=== PATIENT | female | born 1955 | race American Indian/Alaskan Native ===

== ENCOUNTER 2017-06-11 07:52 | Inpatient (IN) | payer MEDICARE ==
--- NOTE | 2017-06-11 08:40 | XRay Report ---
ROUTINE CHEST, TWO VIEWS: HISTORY: chest pain. The trachea, heart, mediastinal contour, lung walker and bony thorax are unremarkable. IMPRESSION: Unremarkable chest x-ray. No acute change since 12/29/14.
[2017-06-11] MEDS ORDERED: MORPHINE IV ONE (08:54)
--- NOTE | 2017-06-11 08:54 | Emergency Department Report ---
ED General Adult HPI - General Chief complaint: Chest Pain Stated complaint: CHEST PAIN Time Seen by Provider: 06/11/17 08:28 Source: patient, EMS Mode of arrival: Stretcher Limitations: No Limitations - History of Present Illness Initial comments: Patient is a 62-year-old female past medical history of HIV and every day smoker who presents with left-sided chest pain. Patient states the low side chest pain was severe. It was a 10 out of 10. Patient states that the chest pain improved with nitroglycerin nothing makes it worse. She denies having any radiation with this pain and she denies having any shortness of breath or chest pain. Patient states that she hasn't had chest pain like this before and states that she is compliant with all her medication. - Related Data Home Medications Medication Instructions Recorded Confirmed Last Taken Atazanavir [Reyataz] 300 mg PO DAILY 11/01/15 11/01/15 10/02/15 Citalopram [celeXA] 20 mg PO QDAY 11/01/15 11/01/15 10/02/15 Emtricitabin/Tenofovir [TRUVADA 1 tab PO QDAY 11/01/15 11/01/15 10/02/15 200-300 mg] Ferrous Sulfate [Feosol] 325 mg PO TID 11/01/15 11/01/15 10/02/15 Ranitidine HCl [Zantac 150 MG TAB] 150 mg PO QDAY 11/01/15 11/01/15 10/02/15 Ritonavir [Norvir] 100 mg PO QDAY 11/01/15 11/01/15 10/02/15 Tamsulosin [Flomax] 0.4 mg PO QDAY 11/01/15 11/01/15 10/02/15 Trazodone HCl [traZODone] 300 mg PO QHS 11/01/15 11/01/15 10/02/15 Allergies Allergy/AdvReac Type Severity Reaction Status Date / Time steroids AdvReac "makes me Uncoded 12/13/14 07:13 flip out" ED Review of Systems ROS: Stated complaint: CHEST PAIN Other details as noted in HPI Constitutional: denies: chills, fever Eyes: denies: eye pain, eye discharge, vision change ENT: denies: ear pain, throat pain Respiratory: denies: cough, shortness of breath, wheezing Cardiovascular: chest pain. denies: palpitations Endocrine: no symptoms reported Gastrointestinal: denies: abdominal pain, nausea, diarrhea Genitourinary: denies: urgency, dysuria, discharge Musculoskeletal: denies: back pain, joint swelling, arthralgia Skin: denies: rash, lesions Neurological: denies: headache, weakness, paresthesias Psychiatric: denies: anxiety, depression Hematological/Lymphatic: denies: easy bleeding, easy bruising ED Past Medical Hx - Past Medical History Hx Psychiatric Treatment: Yes (bipolar) Hx HIV: Yes Additional medical history: pneumonia x 2. emphysema - Surgical History Additional Surgical History: ectopic - Social History Smoking Status: Current Every Day Smoker Substance Use Type: None - Medications Home Medications: Home Medications Medication Instructions Recorded Confirmed Last Taken Type Atazanavir [Reyataz] 300 mg PO DAILY 11/01/15 11/01/15 10/02/15 History Citalopram [celeXA] 20 mg PO QDAY 11/01/15 11/01/15 10/02/15 History Emtricitabin/Tenofovir [TRUVADA 1 tab PO QDAY 11/01/15 11/01/15 10/02/15 History 200-300 mg] Ferrous Sulfate [Feosol] 325 mg PO TID 11/01/15 11/01/15 10/02/15 History Ranitidine HCl [Zantac 150 MG TAB] 150 mg PO QDAY 11/01/15 11/01/15 10/02/15 History Ritonavir [Norvir] 100 mg PO QDAY 11/01/15 11/01/15 10/02/15 History Tamsulosin [Flomax] 0.4 mg PO QDAY 11/01/15 11/01/15 10/02/15 History Trazodone HCl [traZODone] 300 mg PO QHS 11/01/15 11/01/15 10/02/15 History ED Physical Exam - General Limitations: No Limitations General appearance: alert, in no apparent distress - Head Head exam: Present: atraumatic, normocephalic - Eye Eye exam: Present: normal appearance - ENT ENT exam: Present: mucous membranes moist - Neck Neck exam: Present: normal inspection - Respiratory Respiratory exam: Present: normal lung sounds bilaterally. Absent: respiratory distress - Cardiovascular Cardiovascular Exam: Present: regular rate, normal rhythm. Absent: systolic murmur, diastolic murmur, rubs, gallop - GI/Abdominal GI/Abdominal exam: Present: soft, normal bowel sounds - Extremities Exam Extremities exam: Present: normal inspection - Back Exam Back exam: Present: normal inspection - Neurological Exam Neurological exam: Present: alert, oriented X3 - Psychiatric Psychiatric exam: Present: normal affect, normal mood - Skin Skin exam: Present: warm, dry, intact, normal color. Absent: rash ED Course Vital Signs 06/11/17 06/11/17 06/11/17 08:09 08:24 08:26 Temperature 97.7 F Pulse Rate 78 76 77 Respiratory 16 17 Rate Blood Pressure 150/94 O2 Sat by Pulse 96 Oximetry ED Medical Decision Making - Lab Data Result diagrams: 06/11/17 09:02 06/11/17 09:02 Lab Results 06/11/17 06/11/17 Range/Units 09:02 09:02 WBC 4.5 (4.5-11.0) K/mm3 RBC 5.05 H (3.65-5.03) M/mm3 Hgb 15.2 H (10.1-14.3) gm/dl Hct 45.7 H (30.3-42.9) % MCV 90 (79-97) fl MCH 30 (28-32) pg MCHC 33 (30-34) % RDW 15.5 H (13.2-15.2) % Plt Count 115 L (140-440) K/mm3 Lymph % (Auto) 30.1 (13.4-35.0) % Esmeralda % (Auto) 6.9 (0.0-7.3) % Eos % (Auto) 1.3 (0.0-4.3) % Baso % (Auto) 0.7 (0.0-1.8) % Lymph # 1.4 (1.2-5.4) K/mm3 Esmeralda # 0.3 (0.0-0.8) K/mm3 Eos # 0.1 (0.0-0.4) K/mm3 Baso # 0.0 (0.0-0.1) K/mm3 Seg Neutrophils % 61.0 (40.0-70.0) % Seg Neutrophils # 2.8 (1.8-7.7) K/mm3 Sodium 141 (137-145) mmol/L Potassium 4.3 (3.6-5.0) mmol/L Chloride 103.1 (98-107) mmol/L Carbon Dioxide 22 (22-30) mmol/L Anion Gap 20 mmol/L BUN 8 (7-17) mg/dL Creatinine 0.8 (0.7-1.2) mg/dL Estimated GFR > 60 ml/min BUN/Creatinine Ratio 10 % Glucose 96 (65-100) mg/dL Calcium 9.4 (8.4-10.2) mg/dL Troponin T < 0.010 (0.00-0.029) ng/mL - EKG Data -: EKG Interpreted by Ky - EKG Data 06/11/17 10:14 EKG shows sinus rhythm prolonged AK interval T-wave abnormality and T-wave flattening no ST segment elevation - Radiology Data Radiology results: report reviewed, image reviewed Chest x-ray: Shows no acute cardiopulmonary disease - Medical Decision Making Chief medical diagnosis: Non-STEMI Differential medical diagnosis: Pneumothorax, arrhythmia, GERD I will give the patient IV pain medication, CBC, CMP, troponin, EKG, chest x-ray The patient having HIV and a daily smoker she is at risk for acute coronary syndrome. I will admit patient to the hospitalist service for a stress test and echo. Discussed plan with patient and she agrees with plan. Critical care attestation.: If time is entered above; I have spent that time in minutes in the direct care of this critically ill patient, excluding procedure time. ED Disposition Clinical Impression: Tobacco abuse, Acute coronary syndrome Chest pain Qualifiers: Chest pain type: unspecified Qualified Code(s): R07.9 - Chest pain, unspecified Disposition: OP ADMIT IP TO THIS HOSP Is pt being admited?: Yes Does the pt Need Aspirin: No Condition: Stable Instructions: Chest Pain (ED) Referrals: PRIMARY CARE, [Primary Care Provider] - 3-5 Days
[2017-06-11 09:45] LABS: Basophils % (Auto) 0.7 % (0.0-1.8); Eosinophils % (Auto) 1.3 % (0.0-4.3); Hematocrit 45.7 % (30.3-42.9); Hemoglobin 15.2 gm/dl (10.1-14.3); Mean Corpuscular HGB Conc 33 % (30-34); Mean Corpuscular Hemoglobin 30 pg (28-32); Mean Corpuscular Volume 90 fl (79-97); Platelet Count 115 K/mm3 (140-440); Red Blood Count 5.05 M/mm3 (3.65-5.03); Red Cell Distribution Width 15.5 % (13.2-15.2); White Blood Count 4.5 K/mm3 (4.5-11.0)
[2017-06-11 09:47] LABS: Anion Gap 20 mmol/L; BUN/Creatinine Ratio 10; Blood Urea Nitrogen 8 mg/dL (7-17); Calcium 9.4 mg/dL (8.4-10.2); Carbon Dioxide 22 mmol/L (22-30); Chloride 103.1 mmol/L (98-107); Glucose 96 mg/dL (65-100); Potassium 4.3 mmol/L (3.6-5.0); Sodium 141 mmol/L (137-145)
[2017-06-11] MEDS ORDERED: MORPHINE IV PRN (11:06)
[2017-06-11] MEDS ORDERED: DULCOLAX PR PRN (11:06)
[2017-06-11] MEDS ORDERED: TYLENOL PO PRN (11:06)
--- NOTE | 2017-06-11 11:10 | History and Physical Report ---
<TOÑO AGUILAR - Last Filed: 06/11/17 11:54> History of Present Illness Date of examination: 06/11/17 Date of admission: 06/11/2017 Chief complaint: Chest Pain History of present illness: Patient is a 62 years old black with past medical history of HIV and Bipolar who presents to emergency department with chief complaint of chest pain. She states that the pain began this morning constant left side chest pain. The pain was located over to substerna area .Patient described the pain as, something pushing on her chest; non-radiating.There is no aggravating; was relieved when she was given NTG by EMS. The painful episodes did not increase in intensity or severity during this time. Patient rated her pain level 7/10 at present time. She denies nausea, vomiting during these episodes of pain. Patient reported diaphoresis including feeling lightheadedness and dizziness. She continued to have several episodes of the pain throughout the morning and got worried so she called 911 and they brought her to the Emergency Department. The patient states she never had a stress test or cardiac catheterization before or she hasn't had chest pain like this before. Her primary care provider [facility]; her provider is Dr. Mosquera; she does not know her last name. Past History Past Medical History: HIV/AIDS, other (Bipolar) Past Surgical History: No surgical history Social history: Lives alone, smoking. denies: alcohol abuse Family history: CAD, hypertension Medications and Allergies Allergies Allergy/AdvReac Type Severity Reaction Status Date / Time steroids AdvReac "makes me Uncoded 12/13/14 07:13 flip out" Home Medications Medication Instructions Recorded Confirmed Last Taken Type Atazanavir [Reyataz] 300 mg PO DAILY 11/01/15 11/01/15 10/02/15 History Citalopram [celeXA] 20 mg PO QDAY 11/01/15 11/01/15 10/02/15 History Emtricitabin/Tenofovir [TRUVADA 1 tab PO QDAY 11/01/15 11/01/15 10/02/15 History 200-300 mg] Ferrous Sulfate [Feosol] 325 mg PO TID 11/01/15 11/01/15 10/02/15 History Ranitidine HCl [Zantac 150 MG TAB] 150 mg PO QDAY 11/01/15 11/01/15 10/02/15 History Ritonavir [Norvir] 100 mg PO QDAY 11/01/15 11/01/15 10/02/15 History Tamsulosin [Flomax] 0.4 mg PO QDAY 11/01/15 11/01/15 10/02/15 History Trazodone HCl [traZODone] 300 mg PO QHS 11/01/15 11/01/15 10/02/15 History Active Meds: Active Medications Acetaminophen (Tylenol) 650 mg PO Q4H PRN PRN Reason: Pain MILD(1-3)/Fever >100.5/LEE Atazanavir (Reyataz) 300 mg PO DAILY [facility] Bisacodyl (Dulcolax) 10 mg SD QDAY PRN PRN Reason: Constipation unrelieved by MOM Enoxaparin Sodium (Lovenox) 40 mg SUB-Q QDAY [facility] Morphine Sulfate (Morphine) 2 mg IV Q4H PRN PRN Reason: Pain, Moderate (4-6) Review of Systems Constitutional: no weight gain, no fever, no chills, no sweats Ears, nose, mouth and throat: no decreased hearing, no nose pain, no nasal congestion, no nasal discharge Cardiovascular: chest pain, lightheadedness, no orthopnea, no palpitations, no rapid/irregular heart beat, no edema, no syncope, no shortness of breath, no dyspnea on exertion Respiratory: no cough with sputum, no excessive sputum, no hemoptysis, no shortness of breath Gastrointestinal: no vomiting, no diarrhea, no constipation, no change in bowel habits Genitourinary Female: no dysmenorrhea, no pelvic pain, no flank pain, no menorrhagia, no dysuria Rectal: no incontinence, no bleeding Musculoskeletal: no neck pain, no shooting arm pain, no arm numbness/tingling, no low back pain Integumentary: no pruritis, no redness, no sores, no wounds Neurological: no weakness, no parathesias, no numbness, no tingling Psychiatric: no change in sleep habits, no sleep disturbances, no insomnia, no hypersomnia Endocrine: no cold intolerance, no heat intolerance, no polyphagia, no excessive thirst Hematologic/Lymphatic: no easy bruising, no easy bleeding Allergic/Immunologic: no urticaria, no allergic rhinitis Exam - Constitutional Vitals: Temp Pulse Resp BP Pulse Ox 97.7 F 77 17 150/94 96 06/11/17 08:09 06/11/17 08:26 06/11/17 08:24 06/11/17 08:09 06/11/17 08:09 General appearance: Present: no acute distress - EENT Eyes: Present: PERRL ENT: hearing intact - Neck Neck: Present: supple - Respiratory Respiratory: bilateral: CTA - Cardiovascular Rhythm: regular Heart Sounds: Present: S1 & S2 - Extremities Extremities: no ischemia - Abdominal General gastrointestinal: Present: soft, non-tender Female genitourinary: Present: deferred - Rectal Rectal Exam: deferred - Integumentary Integumentary: Present: clear, warm, dry - Musculoskeletal Musculoskeletal: strength equal bilaterally - Psychiatric Psychiatric: appropriate mood/affect - Neurologic Neurologic: CNII-XII intact - Allied Health Allied health notes reviewed: nursing Results - Labs CBC & Chem 7: 06/11/17 09:02 06/11/17 09:02 Labs: Laboratory Last Values WBC 4.5 K/mm3 (4.5-11.0) 06/11/17 09:02 RBC 5.05 M/mm3 (3.65-5.03) H 06/11/17 09:02 Hgb 15.2 gm/dl (10.1-14.3) H 06/11/17 09:02 Hct 45.7 % (30.3-42.9) H 06/11/17 09:02 MCV 90 fl (79-97) 06/11/17 09:02 MCH 30 pg (28-32) 06/11/17 09:02 MCHC 33 % (30-34) 06/11/17 09:02 RDW 15.5 % (13.2-15.2) H 06/11/17 09:02 Plt Count 115 K/mm3 (140-440) L 06/11/17 09:02 Lymph % (Auto) 30.1 % (13.4-35.0) 06/11/17 09:02 Swisher % (Auto) 6.9 % (0.0-7.3) 06/11/17 09:02 Eos % (Auto) 1.3 % (0.0-4.3) 06/11/17 09:02 Baso % (Auto) 0.7 % (0.0-1.8) 06/11/17 09:02 Lymph # 1.4 K/mm3 (1.2-5.4) 06/11/17 09:02 Swisher # 0.3 K/mm3 (0.0-0.8) 06/11/17 09:02 Eos # 0.1 K/mm3 (0.0-0.4) 06/11/17 09:02 Baso # 0.0 K/mm3 (0.0-0.1) 06/11/17 09:02 Seg Neutrophils % 61.0 % (40.0-70.0) 06/11/17 09:02 Seg Neutrophils # 2.8 K/mm3 (1.8-7.7) 06/11/17 09:02 Sodium 141 mmol/L (137-145) 06/11/17 09:02 Potassium 4.3 mmol/L (3.6-5.0) 06/11/17 09:02 Chloride 103.1 mmol/L (98-107) 06/11/17 09:02 Carbon Dioxide 22 mmol/L (22-30) 06/11/17 09:02 Anion Gap 20 mmol/L 06/11/17 09:02 BUN 8 mg/dL (7-17) 06/11/17 09:02 Creatinine 0.8 mg/dL (0.7-1.2) 06/11/17 09:02 Estimated GFR > 60 ml/min 06/11/17 09:02 BUN/Creatinine Ratio 10 % 06/11/17 09:02 Glucose 96 mg/dL (65-100) 06/11/17 09:02 Calcium 9.4 mg/dL (8.4-10.2) 06/11/17 09:02 Troponin T < 0.010 ng/mL (0.00-0.029) 06/11/17 09:02 - Imaging and Cardiology Chest x-ray: image reviewed (Unremarkable ) Assessment and Plan Assessment and plan: Patient is a 62 years old black with past medical history of HIV and Bipolar who presents to emergency department with chief complaint of chest pain. She states that the pain began this morning constant left side chest pain. The pain was located over to substerna area .Patient described the pain as, something pushing on her chest; non-radiating. chest x-ray-no focal infiltrates, no pneumothorax. Cardiac enzyme negative 3. EKG Normal Sinus rhythm no ST elevation or T-wave inversion. ASSESSMENT/PLAN Chest Pain We will admit to telemetry floor. EKG normal sinus rate [address] elevation or T-wave inversion. Negative cardiac enzyme X1 Start on aspirin Nitroglycerin when necessary Morphine ordered for pain Stress test ordered. Dehydration Started on IV fluid hydration HIV CD4 count of 351 with undetectable viral load Follow up with her ID physician Closing monitor Bipolar disorder Patient stable at this time Continue home meds Elevated blood pressure without diagnosis Most likely due to stress, pain or other factors Low-salt diet Lifestyle modification Follow-up with primary provider Tobacco abuse Smoking cessation counseling done. Patient was strongly advised to quit. DVT prophylaxis Lovenox Advance Directives: Yes VTE prophylaxis?: Chemical Contraindication Mechanical VTE Prophylaxis: Treatment Not Indicated Plan of care discussed with patient/family: Yes <AYDE CORCORAN R - Last Filed: 06/11/17 12:13> Medications and Allergies Active Meds: Active Medications Acetaminophen (Tylenol) 650 mg PO Q4H PRN PRN Reason: Pain MILD(1-3)/Fever >100.5/LEE Atazanavir (Reyataz) 300 mg PO DAILY [facility] Bisacodyl (Dulcolax) 10 mg SD QDAY PRN PRN Reason: Constipation unrelieved by MOM Citalopram Hydrobromide (Celexa) 20 mg PO QDAY [facility] Emtricitabine (Emtriva) 200 mg PO QDAY [facility] Enoxaparin Sodium (Lovenox) 40 mg SUB-Q QDAY [facility] Famotidine (Pepcid) 20 mg PO QDAY [facility] Ferrous Sulfate (Feosol) 325 mg PO TID [facility] Sodium Chloride (Nacl 0.9% 1000 Ml) 1,000 mls @ 75 mls/hr IV DIRECT SANTO Morphine Sulfate (Morphine) 2 mg IV Q4H PRN PRN Reason: Pain, Moderate (4-6) Nitroglycerin (Nitrostat) 0.4 mg SL .Q5MIN PRN PRN Reason: Chest Pain Ritonavir (Norvir) 100 mg PO QDAY [facility] Tamsulosin HCl (Flomax) 0.4 mg PO QDAY [facility] Tenofovir Disoproxil Fumarate (Viread) 300 mg PO QDAY [facility] Trazodone HCl (Desyrel) 300 mg PO QHS [facility] Exam - Constitutional Vitals: Temp Pulse Resp BP Pulse Ox 97.7 F 77 17 150/94 96 06/11/17 08:09 06/11/17 08:26 06/11/17 08:24 06/11/17 08:09 06/11/17 08:09 Results - Labs CBC & Chem 7: 06/11/17 09:02 06/11/17 09:02 Labs: Laboratory Last Values WBC 4.5 K/mm3 (4.5-11.0) 06/11/17 09:02 RBC 5.05 M/mm3 (3.65-5.03) H 06/11/17 09:02 Hgb 15.2 gm/dl (10.1-14.3) H 06/11/17 09:02 Hct 45.7 % (30.3-42.9) H 06/11/17 09:02 MCV 90 fl (79-97) 06/11/17 09:02 MCH 30 pg (28-32) 06/11/17 09:02 MCHC 33 % (30-34) 06/11/17 09:02 RDW 15.5 % (13.2-15.2) H 06/11/17 09:02 Plt Count 115 K/mm3 (140-440) L 06/11/17 09:02 Lymph % (Auto) 30.1 % (13.4-35.0) 06/11/17 09:02 Swisher % (Auto) 6.9 % (0.0-7.3) 06/11/17 09:02 Eos % (Auto) 1.3 % (0.0-4.3) 06/11/17 09:02 Baso % (Auto) 0.7 % (0.0-1.8) 06/11/17 09:02 Lymph # 1.4 K/mm3 (1.2-5.4) 06/11/17 09:02 Swisher # 0.3 K/mm3 (0.0-0.8) 06/11/17 09:02 Eos # 0.1 K/mm3 (0.0-0.4) 06/11/17 09:02 Baso # 0.0 K/mm3 (0.0-0.1) 06/11/17 09:02 Seg Neutrophils % 61.0 % (40.0-70.0) 06/11/17 09:02 Seg Neutrophils # 2.8 K/mm3 (1.8-7.7) 06/11/17 09:02 Sodium 141 mmol/L (137-145) 06/11/17 09:02 Potassium 4.3 mmol/L (3.6-5.0) 06/11/17 09:02 Chloride 103.1 mmol/L (98-107) 06/11/17 09:02 Carbon Dioxide 22 mmol/L (22-30) 06/11/17 09:02 Anion Gap 20 mmol/L 06/11/17 09:02 BUN 8 mg/dL (7-17) 06/11/17 09:02 Creatinine 0.8 mg/dL (0.7-1.2) 06/11/17 09:02 Estimated GFR > 60 ml/min 06/11/17 09:02 BUN/Creatinine Ratio 10 % 06/11/17 09:02 Glucose 96 mg/dL (65-100) 06/11/17 09:02 Calcium 9.4 mg/dL (8.4-10.2) 06/11/17 09:02 Troponin T < 0.010 ng/mL (0.00-0.029) 06/11/17 09:02 Assessment and Plan Assessment and plan: I saw and evaluated the patient. I agree with the findings and the plan of care as documented in the Nurse Practitioner's~note.
[2017-06-11] MEDS ORDERED: NITROSTAT SL PRN (11:56)
[2017-06-11] MEDS ORDERED: NACL 0.9% 1000 ML 1,000 ML IV SCH (12:00)
[2017-06-11] MEDS: FEOSOL PO SCH ×2 (14:46→20:03)
[2017-06-11] MEDS ORDERED: DESYREL PO SCH (22:00)
[2017-06-11] MEDS ORDERED: NON-FORMULARY (Trazodone Hcl [Trazodone] 300 MG) PO SCH (22:00)
[2017-06-11] MEDS ORDERED: TUMS PO PRN (23:12)
[2017-06-12] MEDS: FEOSOL PO SCH ×2 (08:00→14:03)
[2017-06-12 08:23] LABS: Basophils % (Auto) 0.5 % (0.0-1.8); Eosinophils % (Auto) 1.1 % (0.0-4.3); Hematocrit 44.2 % (30.3-42.9); Hemoglobin 14.2 gm/dl (10.1-14.3); Mean Corpuscular HGB Conc 32 % (30-34); Mean Corpuscular Hemoglobin 29 pg (28-32); Mean Corpuscular Volume 91 fl (79-97); Platelet Count 110 K/mm3 (140-440); Red Blood Count 4.86 M/mm3 (3.65-5.03); Red Cell Distribution Width 15.5 % (13.2-15.2)
[2017-06-12 08:37] LABS: Anion Gap 18 mmol/L; BUN/Creatinine Ratio 16; Blood Urea Nitrogen 11 mg/dL (7-17); Calcium 9.1 mg/dL (8.4-10.2); Carbon Dioxide 21 mmol/L (22-30); Chloride 103.2 mmol/L (98-107); Glucose 88 mg/dL (65-100); Potassium 4.1 mmol/L (3.6-5.0); Sodium 138 mmol/L (137-145)
[2017-06-12] MEDS ORDERED: REYATAZ PO SCH (10:00)
[2017-06-12] MEDS ORDERED: EMTRIVA PO SCH (10:00)
[2017-06-12] MEDS ORDERED: LEXISCAN IV ONE (10:00)
[2017-06-12] MEDS ORDERED: NORVIR PO SCH (10:00)
[2017-06-12] MEDS ORDERED: LOVENOX SUB-Q SCH (10:00)
[2017-06-12] MEDS ORDERED: PEPCID PO SCH (10:00)
[2017-06-12] MEDS ORDERED: VIREAD PO SCH (10:00)
[2017-06-12] MEDS ORDERED: NON-FORMULARY (Emtricitabin/Tenofovir [Truvada 200-300 Mg] 1 TAB) PO SCH (10:00)
[2017-06-12] MEDS ORDERED: NON-FORMULARY (Ranitidine Hcl [Zantac 150 Mg Tab] 150 MG) PO SCH (10:00)
[2017-06-12] MEDS ORDERED: FLOMAX PO SCH (10:00)
[2017-06-12] MEDS ORDERED: celeXA PO SCH (10:00)
[2017-06-12 10:38] VITALS: BP 106/73
--- NOTE | 2017-06-12 16:00 | Discharge Summary ---
Providers - Providers Date of Admission: 06/11/17 11:06 Date of discharge: 06/12/17 Attending physician: AYDE CORCORAN Primary care physician: CONCRETE MASON Hospitalization Condition: Stable Hospital course: Patient is a 62 years old woman with past medical history of HIV and Bipolar Disorder who presents to emergency department with chief complaint of chest pains. She states that the pain began this morning constant left side chest pain. The pain was located over to substernal area. Patient described the pain as, something pushing on her chest; non-radiating. chest x-ray-no focal infiltrates, no pneumothorax. Cardiac enzyme negative 3. EKG Normal Sinus rhythm no ST elevation or T-wave inversion. Chest Pain, most likely due to GERD We will admit to telemetry floor. EKG normal sinus rate [address] elevation or T-wave inversion. Negative cardiac enzyme X1 Start on aspirin Nitroglycerin when necessary Morphine ordered for pain Stress test ordered. Dehydration Started on IV fluid hydration HIV CD4 count of 351 with undetectable viral load Follow up with her ID physician Closing monitor Bipolar disorder Patient stable at this time Continue home meds Elevated blood pressure without diagnosis Most likely due to stress, pain or other factors Low-salt diet Lifestyle modification Follow-up with primary provider Tobacco abuse Smoking cessation counseling done. Patient was strongly advised to quit. DVT prophylaxis Lovenox Advance Directives: Yes Stress test negative and pt is symptom free. Patient threatening to leave AMA if not discharged Disposition: DC-01 TO HOME OR SELFCARE Time spent for discharge: 32 minutes Core Measure Documentation - Palliative Care Palliative Care/ Comfort Measures: Not Applicable - Core Measures Any of the following diagnoses?: none - VTE Discharge Requirements Deep Vein Thrombosis/Pulmonary Embolism Present on Admission: No Has pt received <5 days of overlap therapy or INR<2.0: No Anticoagulant overlap therapy prescribed at discharge: No Contraindication No Overlap Therapy order at DC: Not Indicated Exam - Physical Exam Narrative exam: GEN: WDWN, NAD, AWAKE, ALERT, ORIENTATED x 3 HEENT: NCAT, EOMI, PERRL, OP Clear NECK: supple, no adenopathy, no thyromegaly, no JVD CVS/HEART: RRR, NORMAL S1S2, NO JVD, pulses present bilaterally CHEST/LUNGS: CTA B, Symmetrical chest expansion, good air entry bilaterally GI/Abdomen: soft, NTND, good bowel sounds, no guarding or rebound /Bladder: no suprapubic tenderness, no CVA or paraspinal tenderness EXT/Skin: no c/c/e, no significant edema or obvious rash MSK: FROM x 4 Neuro: CN 2-12 grossly intact, no new focal deficits Psych: calm - Constitutional Vitals: Temp Pulse Resp BP Pulse Ox 98.1 F 91 H 18 106/73 95 06/11/17 23:17 06/12/17 10:17 06/12/17 04:27 06/12/17 10:06/12/17 04:27 Plan Activity: other (no strenous activity until cleared by pcp) Diet: low salt Follow up with: PRIMARY CARE, [Primary Care Provider] - 3-5 Days
--- NOTE | 2017-06-13 02:46 | Treadmill Report ---
THALLIUM STRESS TEST LEFT VENTRICLE: Left ventricular chamber size is within normal spread. Perfusion study demonstrates homogeneous uptake of the tracer in all segments. No significant perfusion defects identified. Gated analysis demonstrates normal left ventricular systolic function, ejection fraction of 69%. CONCLUSION: Normal myocardial perfusion study. JOB# [id number] CA/NTS
== END 2017-06-12 17:32 | disposition home or self-care (01) | DRG 391 ==
LOC: ED 07:52 → 4A 11:06
PROVIDERS: ADMIT Internal Medicine; ATTEND Internal Medicine
DX: K21.9 Gastro-esophageal reflux disease without esophagitis (principal); B20 Human immunodeficiency virus [HIV] disease; E86.0 Dehydration; F31.9 Bipolar disorder, unspecified; F17.210 Nicotine dependence, cigarettes, uncomplicated; Z79.899 Other long term (current) drug therapy; Z82.49 Family history of ischemic heart disease and other diseases of the circulatory system; Z71.6 Tobacco abuse counseling
CPT/HCPCS: 36415; 71020; 78452; 80048; 84484; 85025; 93005; 93010; 93017; 96374; 99406; A9502; J1650; J2270; J2785; J7030